=== PATIENT | male | born 1975 | race Caucasian/White ===

== ENCOUNTER 2019-07-25 09:43 | Emergency (ER) | payer BC | END 2019-07-25 10:50 | LOC: LB.ED 09:43 | DX: Z13.9 Encounter for screening, unspecified (principal) ==

== ENCOUNTER 2020-04-13 20:07 | Emergency (ER) | payer BC ==
[2020-04-13] MEDS ORDERED: Acetaminophen/oxyCODONE 325-5 MG Tab ONE (20:30)
[2020-04-13] MEDS ORDERED: HYDROmorphone 2 MG/ML SDV IVPUSH ONE (20:49)
[2020-04-13] MEDS ORDERED: HYDROmorphone 2 MG/ML SDV ONE (20:58)
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
--- NOTE | 2020-04-14 09:17 | CT ---
DATE OF SERVICE: 04/13/20 CLINICAL DATA: trauma CERVICAL SPINE CT: Multislice axial acquisition was performed. Axial images and sagittal and coronal reformations are reviewed. There is mild reversal of the normal cervical lordosis on the sagittal reformations. This is most likely positional or due to muscle spasm. The vertebral bodies are of average height and in good alignment. No acute fracture or dislocation. No lytic or blastic bone lesions. There is degenerative disc disease at multiple levels. No significant central or foraminal stenosis. The soft tissues are unremarkable. IMPRESSION: No acute abnormalities. [id number] [facility]
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
== END 2020-04-13 20:39 | disposition home or self-care (01) ==
LOC: LB.ED 20:07
DX: S82.001A Unspecified fracture of right patella, initial encounter for closed fracture (principal); V86.59XA Driver of other special all-terrain or other off-road motor vehicle injured in nontraffic accident, initial encounter
CPT/HCPCS: 70450; 72125; 73110-LT; 73562-RT; 96374; 99283; 99284-25; A9270-GY; J1170

== ENCOUNTER 2024-12-09 09:26 | Emergency (ER) | payer BC ==
[2024-12-09] MEDS: Lidocaine 1% with EPINEPHrine 1:100,000 50 ML MDV INFILT ONE (09:45)
== END 2024-12-09 10:20 | disposition home or self-care (01) ==
LOC: LB.ED 09:26
DX: S51.812A Laceration without foreign body of left forearm, initial encounter (principal); Z88.8 Allergy status to other drugs, medicaments and biological substances; Z79.899 Other long term (current) drug therapy; W26.8XXA Contact with other sharp object(s), not elsewhere classified, initial encounter
CPT/HCPCS: 12002; 99283

== ENCOUNTER 2024-12-13 08:33 | Emergency (ER) | payer BC ==
[2024-12-13] MEDS: Diphtheria,Pertussis(Acell),Tetanus Vaccine 0.5 ML Syringe IM ONE (09:48)
[2024-12-13 10:21] LABS: BASOPHILS ABSOLUTE AUTO 0.01 K/uL (0.02-0.10); BASOPHILS PERCENT AUTO 0.3 % (0.0-0.5); EOSINOPHILS ABSOLUTE AUTO 0.05 K/uL (0.04-0.40); EOSINOPHILS PERCENT AUTO 1.6 % (1.0-5.0); LYMPHOCYTES ABSOLUTE AUTO 1.06 K/uL (1.50-4.00); LYMPHOCYTES PERCENT AUTO 33.2 % (20.0-40.0); MEAN PLATELET VOLUME 10.1 fL (6.0-10.0); MONOCYTES ABSOLUTE AUTO 0.43 K/uL (0.20-0.80); MONOCYTES PERCENT AUTO 13.5 % (3.0-10.0); NEUTROPHILS ABSOLUTE AUTO 1.64 K/uL (2.00-7.50); NEUTROPHILS PERCENT AUTO 51.4 % (45.0-70.0); PLATELET COUNT,PLT 102 K/uL (150-400); RED BLOOD CELL COUNT 4.93 M/uL (4.50-6.50); RED CELL DISTRIBUTION WIDTH 12.8 % (11.0-16.0); WHITE BLOOD CELL COUNT,WBC 3.2 K/uL (4.0-11.0)
[2024-12-13 10:29] LABS: BLOOD UREA NITROGEN,BUN 14.0 mg/dL (8-26); CARBON DIOXIDE,CO2 27.5 mmol/L (21.0-32.0); CHLORIDE,CL 104.0 mmol/L (98-107); CREATININE 0.76 mg/dL (0.70-1.30); EST CRCL DRUG DOSING (CG) 118.73 mL/min; ESTIMATED GFR 109.0 mL/min (>60); GLUCOSE RANDOM 111.0 mg/dL (74-100); POTASSIUM,K 4.2 mmol/L (3.5-5.1); SODIUM,NA 139.0 mmol/L (136-145)
== END 2024-12-13 11:30 | disposition home or self-care (01) ==
LOC: LB.ED 08:33
DX: G04.90 Encephalitis and encephalomyelitis, unspecified (principal); Z23 Encounter for immunization; Z79.899 Other long term (current) drug therapy
CPT/HCPCS: 36415; 80048; 83605; 85025; 86140; 87040; 87651; 87798; 90471; 90715; 99284; 99284-25; A9270-GY